=== PATIENT | male | born 1995 | race African-American/Black ===

== ENCOUNTER 2020-03-20 19:00 | Emergency (ER) | payer SELFPAY ==
[~2020-03-20] VITALS: Ht 182.9 cm; Wt 78.2 kg
[2020-03-20 19:09] VITALS: BP 137/79; TEMP 98.2
[2020-03-20] MEDS ORDERED: FLEXERIL 1010 MG/TAB PO (20:54)
[2020-03-20 21:09] VITALS: PULSE 87
== END 2020-03-20 21:00 | disposition home or self-care (01) ==
LOC: COL.ER 19:00
DX: S39.012A Strain of muscle, fascia and tendon of lower back, initial encounter (principal); F17.200 Nicotine dependence, unspecified, uncomplicated; V49.9XXA Car occupant (driver) (passenger) injured in unspecified traffic accident, initial encounter
CPT/HCPCS: J1885; J2360

== ENCOUNTER 2020-05-08 15:06 | Emergency (ER) | payer SELFPAY ==
[~2020-05-08] VITALS: Ht 182.9 cm; Wt 78.2 kg
[~2020-05-08 15:06] MED LIST: FLEXERIL 1010 MG/TAB PO
[2020-05-08 15:13] VITALS: TEMP 98
[2020-05-08 15:38] LABS: BASO % 0.4 % (0.0-2.0); EOS # 0.3 (0.0-0.7); GRAN # 4.3 (1.4-6.5); GRAN % 53.5 % (42.2-75.2); HEMATOCRIT 42.9 % (42.0-52.0); HEMOGLOBIN 13.1 g/dl (13.5-18.0); LYMPH # 2.2 (1.2-3.4); LYMPH % 27.7 % (20.0-51.0); MEAN CELL VOLUME 79 fl (80.0-100.0); MEAN CORPUSCULAR HEMOGLOBIN 24 pg (27.0-31.0); MEAN CORPUSCULAR HGB CONC 31 g/dl (33.0-37.0); MEAN PLATELET VOLUME 10.6 fl (7.4-10.4); MONO # 1.1 (0.1-0.6); MONO % 14.3 % (1.7-9.3); PLATELET COUNT 242 K/mm3 (130-400); RED BLOOD COUNT 5.42 M/mm3 (4.20-5.60); REDCELL DISTRIBUTION WIDTH-CV 13.6 % (11.5-14.5)
[2020-05-08 15:49] LABS: ALANINE AMINOTRANSFERASE 48 U/L (4-49); ALKALINE PHOSPHATASE 173 U/L (50-136); ANION GAP 6 mmol/L (7-16); AST,SGOT 38 U/L (15-37); BILIRUBIN,TOTAL 0.6 mg/dL (0.0-1.0); BLOOD UREA NITROGEN 10 mg/dL (9-20); CALCIUM 9.9 mg/dL (8.4-10.2); CARBON DIOXIDE 28 mmol/L (22-30); CHLORIDE 104 mmol/L (98-107); CREATININE, serum 0.91 (0.66-1.25); GLUCOSE 101 mg/dL (74-106); SODIUM 138 mmol/L (137-145); TOTAL PROTEIN 7.7 gm/dL (6.4-8.2)
[2020-05-08 15:51] LABS: C-REACTIVE PROTEIN < 0.5 mg/dL (0.0-0.9)
[2020-05-08] MEDS ORDERED: AMOXICILLIN 8751 TAB PO (16:06)
[2020-05-08 16:20] VITALS: BP 134/74; PULSE 71
== END 2020-05-08 16:20 | disposition home or self-care (01) ==
LOC: COL.ER 15:06
PROVIDERS: Emergency Medicine
DX: J01.90 Acute sinusitis, unspecified (principal); F17.210 Nicotine dependence, cigarettes, uncomplicated
CPT/HCPCS: J0780; J1200; J1885; J3010; J7030